=== PATIENT | female | born 2000 | race Two or more races ===

== ENCOUNTER 2021-09-13 07:46 | Inpatient (IN) | payer OTHER ==
[~2021-09-13] VITALS: Ht 160 cm; Wt 87.7 kg
[2021-09-13 09:00] VITALS: BP 104/68
[2021-09-13] MEDS ORDERED: MORPHINE SULFATE INJECTION 2 MG/ML SYRG IV PRN ×3 (09:45→16:45)
[2021-09-13] MEDS: SODIUM CHLORIDE 0.9% 1,000 ML IV SCH ×2 (09:45→18:31)
[2021-09-13] MEDS ORDERED: NITROGLYCERIN 0.4 MG SL TAB SL PRN (09:45)
[2021-09-13] MEDS: ENOXAPARIN SOD 40 MG/0.4 ML SYRINGE SC SCH (10:00)
[2021-09-13 10:57] LABS: Albumin 3.2 g/dL (3.4-5.0); Calcium 8.7 mg/dL (8.5-10.1); Potassium 4.3 mmol/L (3.5-5.1)
[2021-09-13 11:01] LABS: BUN/Creatinine Ratio 13.8; Bilirubin, Total 1.5 mg/dL (0.2-1.0); Total Protein 5.9 g/dL (6.4-8.2)
[2021-09-13 11:19] LABS: Basophils # (auto) 0.1 10 ^3/uL (0-0.2); Basophils % (auto) 0.6 % (0.0-2.0); Eosinophils # (auto) 0.3 10 ^3/uL (0-0.8); Eosinophils % (auto) 3.9 % (0.0-7.0); Hematocrit 38.7 % (36.0-46.0); Hemoglobin 12.8 g/dL (12.2-16.2); Lymphocytes # (auto) 1.9 10 ^3/uL (0.4-5.4); Lymphocytes % (auto) 22.9 % (10.0-50.0); Mean Corpuscular Hemoglobin 28.9 pg (28.0-32.0); Mean Corpuscular Volume 87.5 fL (80.0-100.0); Monocytes # (auto) 0.7 10 ^3/uL (0-1.3); Neutrophils # (auto) 5.4 10 ^3/uL (1.6-8.6); Neutrophils % (auto) 64.6 % (37.0-80.0); Red Blood Cells 4.42 10^6/uL (4.0-5.20); Red Cell Distribution Width 12.9 % (11.8-14.3); White Blood Cell 8.4 10^3/uL (4.4-10.8)
[2021-09-13 13:00] VITALS: BP 103/58
[2021-09-13] MEDS ORDERED: KETOROLAC TROMETH 30 MG/ML 1ML VIAL IV PRN (16:30)
[2021-09-13] MEDS ORDERED: ACETAMINOPHEN 325 MG TAB PO PRN (16:30)
[2021-09-13 17:00] VITALS: BP 108/71
[2021-09-13] MEDS: HYDROmorphone HCL 2 MG/ML VL IV PRN (20:24)
[2021-09-13 22:00] VITALS: BP 119/76
[2021-09-14] MEDS: HYDROmorphone HCL 2 MG/ML VL IV PRN ×6 (00:35→21:51)
[2021-09-14] MEDS: SODIUM CHLORIDE 0.9% 1,000 ML IV SCH ×3 (02:25→19:45)
[2021-09-14 05:00] VITALS: BP 137/86
[2021-09-14 05:11] LABS: Basophils # (auto) 0 10 ^3/uL (0-0.2); Basophils % (auto) 0.6 % (0.0-2.0); Eosinophils # (auto) 0.2 10 ^3/uL (0-0.8); Eosinophils % (auto) 3.4 % (0.0-7.0); Hematocrit 35.5 % (36.0-46.0); Hemoglobin 12.1 g/dL (12.2-16.2); Lymphocytes # (auto) 1.5 10 ^3/uL (0.4-5.4); Lymphocytes % (auto) 28.4 % (10.0-50.0); Mean Corpuscular Hemoglobin 29.4 pg (28.0-32.0); Mean Corpuscular Hgb Conc. 34.1 g/dL (32.0-36.0); Mean Corpuscular Volume 86.2 fL (80.0-100.0); Monocytes # (auto) 0.5 10 ^3/uL (0-1.3); Monocytes % (auto) 8.7 % (0.0-12.0); Neutrophils # (auto) 3.1 10 ^3/uL (1.6-8.6); Neutrophils % (auto) 58.9 % (37.0-80.0); Nucleated Red Blood Cells % 0.1 %; Red Blood Cells 4.12 10^6/uL (4.0-5.20); Red Cell Distribution Width 12.8 % (11.8-14.3); White Blood Cell 5.3 10^3/uL (4.4-10.8)
[2021-09-14 05:29] LABS: Calcium 7.9 mg/dL (8.5-10.1); Potassium 3.5 mmol/L (3.5-5.1)
[2021-09-14 05:33] LABS: BUN/Creatinine Ratio 13.5; Bilirubin, Total 1.4 mg/dL (0.2-1.0); Total Protein 5.6 g/dL (6.4-8.2)
[2021-09-14 06:22] LABS: INR 1.06 (0.9-1.15)
[2021-09-14 09:00] VITALS: BP 123/73
[2021-09-14] MEDS: ENOXAPARIN SOD 40 MG/0.4 ML SYRINGE SC SCH (09:17)
[2021-09-14 13:00] VITALS: BP 109/69
[2021-09-14 17:00] VITALS: BP 118/79
[2021-09-14 22:00] VITALS: BP 132/94
[2021-09-15] MEDS: HYDROmorphone HCL 2 MG/ML VL IV PRN ×5 (03:14→14:40)
[2021-09-15] MEDS: SODIUM CHLORIDE 0.9% 1,000 ML IV SCH ×4 (03:25→20:28)
[2021-09-15 05:00] VITALS: BP 119/65
[2021-09-15 05:49] LABS: Albumin 2.9 g/dL (3.4-5.0); Calcium 8.5 mg/dL (8.5-10.1); Potassium 3.6 mmol/L (3.5-5.1)
[2021-09-15 05:51] LABS: BUN/Creatinine Ratio 9.2
[2021-09-15 05:54] LABS: Bilirubin, Total 1.4 mg/dL (0.2-1.0); Total Protein 5.3 g/dL (6.4-8.2)
[2021-09-15 09:00] VITALS: BP_SYST 119; BP_SYST 97; BP_DIAS 59; BP_DIAS 79
[2021-09-15] MEDS: ENOXAPARIN SOD 40 MG/0.4 ML SYRINGE SC SCH (10:00)
[2021-09-15] MEDS ORDERED: BUPIVACAINE 0.25% INJ 50ML VIAL ONE (12:01)
[2021-09-15] MEDS ORDERED: ceFAZolin 1GM/50ML 100 ML IV ONE (12:07)
[2021-09-15] MEDS ORDERED: ROCURONIUM 10MG/ML 10ML VIAL IV ONE (12:37)
[2021-09-15] MEDS ORDERED: fentaNYL CITRATE 5 ML ONE (12:37)
[2021-09-15] MEDS ORDERED: MIDAZOLAM HCL 2MG/2ML 2ml VIAL (1mg/ml) ONE (12:37)
[2021-09-15] MEDS ORDERED: ONDANSETRON HCL 4 MG/2 ML VIAL ONE (12:38)
[2021-09-15] MEDS ORDERED: PROPOFOL 10 MG/ML 20 ML IV ONE (12:38)
[2021-09-15] MEDS ORDERED: LIDOCAINE 2% (LOCAL ANESTH.) PF 5ml SDV ONE (12:38)
[2021-09-15] MEDS ORDERED: ONDANSETRON HCL 4 MG/2 ML VIAL IV PRN (13:30)
[2021-09-15] MEDS ORDERED: HYDROmorphone HCL 2 MG/ML VL IV PRN (13:30)
[2021-09-15] MEDS ORDERED: HYDROcodone-ACET 5/325MG TAB PO PRN (15:45)
[2021-09-15 17:00] VITALS: BP 117/78
[2021-09-15] MEDS: HYDROcodone-ACET 10/325MG TAB PO PRN (20:33)
[2021-09-15 22:00] VITALS: BP 130/95
[2021-09-16] MEDS: HYDROcodone-ACET 10/325MG TAB PO PRN ×2 (02:46→10:52)
[2021-09-16] MEDS: SODIUM CHLORIDE 0.9% 1,000 ML IV SCH (04:25)
[2021-09-16 05:00] VITALS: BP 114/82
[2021-09-16 06:32] LABS: Basophils # (auto) 0.1 10 ^3/uL (0-0.2); Basophils % (auto) 0.8 % (0.0-2.0); Eosinophils # (auto) 0.2 10 ^3/uL (0-0.8); Eosinophils % (auto) 3.5 % (0.0-7.0); Hematocrit 35.4 % (36.0-46.0); Hemoglobin 12.4 g/dL (12.2-16.2); Lymphocytes # (auto) 1.5 10 ^3/uL (0.4-5.4); Lymphocytes % (auto) 22.1 % (10.0-50.0); Mean Corpuscular Hemoglobin 29.7 pg (28.0-32.0); Mean Corpuscular Hgb Conc. 35.1 g/dL (32.0-36.0); Mean Corpuscular Volume 84.5 fL (80.0-100.0); Monocytes # (auto) 0.8 10 ^3/uL (0-1.3); Monocytes % (auto) 11.8 % (0.0-12.0); Neutrophils # (auto) 4.1 10 ^3/uL (1.6-8.6); Neutrophils % (auto) 61.8 % (37.0-80.0); Nucleated Red Blood Cells % 0.2 %; Red Blood Cells 4.19 10^6/uL (4.0-5.20); Red Cell Distribution Width 12.7 % (11.8-14.3); White Blood Cell 6.6 10^3/uL (4.4-10.8)
[2021-09-16 06:40] LABS: Potassium 3.6 mmol/L (3.5-5.1)
[2021-09-16 06:45] LABS: Albumin 2.9 g/dL (3.4-5.0); BUN/Creatinine Ratio 6.8; Calcium 8.4 mg/dL (8.5-10.1); Magnesium 1.8 mg/dL (1.6-2.6)
[2021-09-16 06:47] LABS: Bilirubin, Total 1.5 mg/dL (0.2-1.0); Total Protein 5.3 g/dL (6.4-8.2)
[2021-09-16 09:00] VITALS: BP 125/82
[2021-09-16] MEDS: ENOXAPARIN SOD 40 MG/0.4 ML SYRINGE SC SCH (10:00)
[2021-09-16] MEDS ORDERED: ERGOCALCIFEROL 50,000 UNIT(1.25MG) CAP PO ONE (12:00)
[2021-09-16 12:51] VITALS: BP_SYST 113; BP_SYST 119; BP_DIAS 63; BP_DIAS 89
[2021-09-16] MEDS ORDERED: NEOSTIGMINE 1 MG/ML INJ (10mg/10ML VIAL) IV ONE (13:17)
[2021-09-16] MEDS ORDERED: GLYCOPYRROLATE 0.2 MG/ML 1ML VIAL IV ONE (13:17)
== END 2021-09-16 13:30 | disposition left against medical advice (07) | DRG 417 ==
LOC: TELE-WESTW 07:46 → WEST WING 09:35
PROVIDERS: ADMIT Internal Medicine; ATTEND Internal Medicine
PROC: 0FT44ZZ Resection of Gallbladder, Percutaneous Endoscopic Approach (ICD-10-PCS; principal; 2021-09-15 12:46)
DX: K80.00 Calculus of gallbladder with acute cholecystitis without obstruction (principal); N17.0 Acute kidney failure with tubular necrosis; E88.09 Other disorders of plasma-protein metabolism, not elsewhere classified; R79.89 Other specified abnormal findings of blood chemistry; Z53.29 Procedure and treatment not carried out because of patient's decision for other reasons; E55.9 Vitamin D deficiency, unspecified; Z20.822 Contact with and (suspected) exposure to COVID-19; Z82.3 Family history of stroke; Z82.49 Family history of ischemic heart disease and other diseases of the circulatory system; Z83.3 Family history of diabetes mellitus; Z90.49 Acquired absence of other specified parts of digestive tract; Z91.040 Latex allergy status; E66.9 Obesity, unspecified; Z68.35 Body mass index [BMI] 35.0-35.9, adult
CPT/HCPCS: 36415; 74176; 74181; 76705; 80053; 81025; 82306; 83735; 84702; 85025; 85610; G0378; J0690; J2001; J2250; J2405; J2704; J3490